=== PATIENT | female | born 1990 | race Caucasian/White ===

== ENCOUNTER 2018-07-04 15:55 | Outpatient (REF) | payer MEDICAID, SELFPAY ==
--- NOTE | 2018-07-04 14:00 | PAPFT_PTH ---
PATIENT: EDUARDA HOWELL LOC: [facility] U#:[id number] AGE/SX: 28/F ROOM: RE07/04/[address]: BIBI Marcos : 1990 BED: DIS: 07/04/2018 SPEC #: [id number] RECD: 07/04/18 17:19 STATUS: JORGE REMichael #: [id number] DONOVAN: 07/04/18 14:[address]: Mandy Camargo DEPT: [facility] Cytology RECD BY: Kristyn Cast ENTERED: 07/04/18 17:19 SP TYPE: PAPFT EROS DR: None Tissues: 1 - CX/ENDOCX FOR PAP SMEARS Procedures: PAP THIN PREP/[facility] Screening HPV DNA PROBE Comments: [id number]
[2018-07-07 15:01] LABS: Chlamydia Result Negative; GC Result Negative
== END 2018-07-04 16:15 ==
LOC: LBN 15:55
PROVIDERS: Visit Provider Nurse Practitioner Family
DX: Z11.3 Encounter for screening for infections with a predominantly sexual mode of transmission (principal); Z12.4 Encounter for screening for malignant neoplasm of cervix; Z11.51 Encounter for screening for human papillomavirus (HPV)
CPT/HCPCS: 87491; 87591; 88142; 87624

== ENCOUNTER 2018-07-23 11:05 | Outpatient (CLI) | payer MEDICAID, SELFPAY ==
[2018-07-24 11:47] LABS: Syphilis Serology (RPR) Negative (Negative)
[2018-07-24 12:15] LABS: Hepatitis C Ab w Rflx HCV PCR Negative (NEGAT)
[2018-07-24 12:26] LABS: Hepatitis B Surface Ag Negative (NEGAT)
[2018-07-24 12:39] LABS: HIV-1/2 Ag & Ab Screen Negative (NEGAT)
[2018-07-24 16:10] LABS: Chlamydia Result Negative; GC Result Negative; Specimen Description URINE
== END 2018-07-23 11:25 ==
PROVIDERS: Visit Provider Nurse Practitioner Women's Health
DX: Z11.3 Encounter for screening for infections with a predominantly sexual mode of transmission (principal); Z11.4 Encounter for screening for human immunodeficiency virus [HIV]; Z11.59 Encounter for screening for other viral diseases
CPT/HCPCS: 36415; 86803; 87340; 87389; 87491; 87591; 86592

== ENCOUNTER 2018-11-24 14:45 | Outpatient (CLI) | payer MEDICAID, SELFPAY ==
--- NOTE | 2018-11-24 14:00 | DI.RAD_ITS ---
SYMPTOMS/DIAGNOSIS: LEFT FOOT PAIN, INJURY, M79.679 LEFT FOOT: There is a nondisplaced fracture of the distal portion of the proximal phalanx of the 5th toe. There is no extension to the articular surface. No additional fractures are seen. IMPRESSION: Nondisplaced fracture of the proximal phalanx of the 5th toe.
== END 2018-11-24 15:05 ==
PROVIDERS: Visit Provider Nurse Practitioner Family
DX: M79.672 Pain in left foot (principal); S92.514A Nondisplaced fracture of proximal phalanx of right lesser toe(s), initial encounter for closed fracture
CPT/HCPCS: 73630

== ENCOUNTER 2019-07-14 13:49 | Outpatient (REF) | payer BC, SELFPAY ==
[2019-07-15 14:16] LABS: Chlamydia Result Negative (Negative); GC Result Negative (Negative); Specimen Description CERVIX
== END 2019-07-14 14:09 ==
LOC: LBN 13:49
PROVIDERS: Visit Provider Nurse Practitioner Family
DX: Z11.3 Encounter for screening for infections with a predominantly sexual mode of transmission (principal)
CPT/HCPCS: 87491; 87591